=== PATIENT | male | born 1955 | race Caucasian/White ===

== ENCOUNTER 2018-10-17 08:12 | Emergency (ER) | payer OTHER, SELFPAY ==
[2018-10-17] VITALS (7 sets, daily range): BP systolic 119–159; BP diastolic 68–86; PULSE 61–83; RESP 13–24; TEMP 36.4; O2SAT 80–97; BMI 35.2
--- NOTE | 2018-10-17 08:24 | RAD_ITS ---
STUDY: X-RAY - LEFT SHOULDER REASON FOR EXAM: Male, 63 years old. Pain following injury. Limited motion. TECHNIQUE: 2 view(s) of the shoulder. COMPARISON: None. FINDINGS: There is anterior subluxation of the shoulder joint. Normal acromioclavicular joint. Normal acromion. Normal humeral head and visualized proximal humerus. The soft tissue structures are unremarkable. Normal visualized pulmonary apex. RAD/Shoulder min 2 Views IMPRESSION: Anterior subluxation of the shoulder joint. Electronically Signed: Micha Espinoza, at 9:06 EDT , Service support ,
--- NOTE | 2018-10-17 08:27 | ED.DCSUM_ITS ---
- ER Visit Summary Date of Service: 10/17/18 Chief Complaint: Left shoulder injury History of Present Illness: The patient is a 63 M who was at work today when he fell. He landed on his left elbow stating that drove everything up into his shoulder. He notes pain in the left shoulder and limited range of motion. He states he had some tingling in his fingers. He denies prior shoulder injury. He denies any other injuries. Physical Examination: Afebrile vital signs are stable Gen: Well-nourished well-developed patient appears in pain Head: Normocephalic atraumatic Eyes: Perrl EOMI ENT: TMs clear no rhinorrhea moist mucous membranes. Nellie Lynn score of 2 Neck: Supple no lymphadenopathy no JVD nontender CVS: Regular rate rhythm no murmurs normal S1-S2 Respiratory: No distress clear to auscultation bilaterally chest nontender Abdomen: Soft nontender nondistended normal bowel sounds umbilical hernia Back: Nontender Extremity: Left shoulder demonstrates limited range of motion. Deformity noted. Neurovascular intact distal. Skin: Normal color no rash Neuro: alert orientated ?3 CN II-XII intact normal strength sensation Test Results: Left shoulder films were obtained which demonstrated a anterior shoulder dislocation. No obvious fracture. Emergency Department Course and Treatment: IV established the patient received fentanyl and Zofran. Patient and family provided informed consent for the use of propofol for procedural sedation for closed reduction. Last p.o. was 3 hours prior to arrival and was only coffee. Patient was placed on the monitor and given supplemental oxygen. Patient received aliquots of propofol to maintain sedation. Reduction was attempted through traction and standard Milch technique. Patient was placed in sling and swath. Postreduction films were obtained in satisfactory position. He will be referred to on-call orthopedics. Impression: 1. Left anterior shoulder dislocation 2. Procedural sedation by emergency physician 3. Reduction of dislocation This note was generated with Real Time Translation dictation software. It may contain incorrect words, spelling, and punctuation that were not noted in review of the chart prior to signing ED Disposition - Plan for ED Patient: Disposition: Home or Assisted Living Instructions: DISLOCATION: SHOULDER (Reduced) Prescriptions: Hydrocodone Bitart/Apap 5-325 [[place] 5MG-325MG] 1 tab PO Q6H PRN PRN 3 Days #12 tab PRN Reason: Pain Prescription Printed Referrals: Care Physician,No Primary [Primary Care Provider] - Tomás De Paz DO [STAFF PHYSICIAN] - As soon as possible
[2018-10-17] MEDS: Ondansetron 4 MG/2 ML Vial IV (08:43)
[2018-10-17] MEDS: fentaNYL 100 MCG/2 ML Ampul 50 MCG IV (08:43)
[2018-10-17] MEDS: Propofol 200 MG/20 ML Vial IV BOLUS ×2 (09:05→09:15)
--- NOTE | 2018-10-17 09:23 | RAD_ITS ---
STUDY: X-RAY - LEFT SHOULDER REASON FOR EXAM: Male, 63 years old. Post reduction. TECHNIQUE: AP single view(s) of the shoulder. COMPARISON: None. FINDINGS: Satisfactory reduction. There is degenerative arthrosis of the acromioclavicular joint without inferior osseous spur formation. Normal acromion. Normal humeral head and visualized proximal humerus. The soft tissue structures are unremarkable. Normal visualized pulmonary apex. RAD/Shoulder min 2 Views IMPRESSION: Satisfactory reduction. Electronically Signed: Micha Espinoza, at 9:37 EDT , Service support ,
[2018-10-17] MEDS: 0.9% Normal Saline 1,000 ML 150 ML IV (09:30)
== END 2018-10-17 10:42 | disposition home or self-care (01) ==
PROVIDERS: Emergency Provider Emergency Medicine
DX: S43.015A Anterior dislocation of left humerus, initial encounter (principal); W18.30XA Fall on same level, unspecified, initial encounter; Y93.89 Activity, other specified; Y92.89 Other specified places as the place of occurrence of the external cause; Y99.0 Civilian activity done for income or pay
CPT/HCPCS: 23650; 73030; 96374; 96375; 99152; 99284; J7030; A4216; J2405

== ENCOUNTER → 2018-11-05 | Outpatient (CLI) | payer OTHER, SELFPAY ==
[2018-10-22 09:39] VITALS: BMI 35.2
--- NOTE | 2018-11-05 09:57 | RAD_ITS ---
CLINICAL HISTORY: Male, 63 years old. Left shoulder pain following a recent injury. PROCEDURE: ARTHROGRAM - LEFT SHOULDER CONSENT: The procedure as well as the benefits and possible complications including infection and bleeding were explained to the patient. Informed consent was obtained. FLUOROSCOPY TIME (if supplied): (0:33) minutes/seconds Injection Information: 10 cc of dilute Magnevist. Number of images obtained: 4 TECHNIQUE: (All elements of maximal sterile barrier technique followed, including US elements as applicable) The patient was in the supine position. The overlying skin was prepped and draped in the usual sterile fashion. Following local anesthetic application and under direct fluoroscopic guidance, a 22-gauge spinal needle was placed into the shoulder joint. 2 cc of Isovue 300 was injected for confirmation. Following this, 10 cc of dilute Magnevist was injected. The patient tolerated the procedure well. RAD/Arthrogram Shoulder w/ MRI IMPRESSION: Shoulder arthrogram for MRI examination. The patient tolerated the procedure well. Electronically Signed: Micha Espinoza, at 11:08 EDT , Service support ,
--- NOTE | 2018-11-05 11:30 | MRI_ITS ---
STUDY: MR LEFT SHOULDER ARTHROGRAPHY REASON FOR EXAM: Decreased range of motion, fall with dislocation 3 weeks ago. TECHNIQUE: Standardized fat and water weighted pulse sequences were obtained in all 3 orthogonal planes after intra-articular instillation of dilute Magnevist. COMPARISON: Radiographs 10/17/2018. FINDINGS: There is mild supraspinatus tendinosis (T2 coronal images 10, 11) and a small linear intrasubstance partial thickness tear of the distal anterior supraspinatus tendon at the greater tuberosity insertion (T2 coronal image 12) without intravasation of contrast to indicate a tear communicating with the articular surface. Normal infraspinatus tendon. There is a full-thickness tear of the subscapularis tendon, retracted approximately 1.2 cm with medial dislocation of the long biceps tendon (T1 axial images 12-15). Normal teres minor tendon. Normal supraspinatus muscle. Normal infraspinatus muscle. Normal subscapularis muscle. There is atrophy with partial fat replacement of the teres minor muscle (T1 coronal image 1). Normal glenohumeral articulation. There is a Hill-Sachs lesion (T1 axial image 8) with bone edema from recent impaction. Normal biceps labral complex. Normal labrum. Normal capsulo- ligamentous complex. Normal rotator interval. There is acromioclavicular arthrosis with mild hypertrophic changes effacing the subacromial fat (T2 sagittal images 7, 8). There is a Type I morphology (flat undersurface), with a neutral orientation. There is dilute gadolinium in the anterior subacromial-subdeltoid bursa. Normal visualized coracohumeral and coracoacromial ligaments. There is mild iatrogenic edema in the proximal anterior deltoid muscle. Normal trapezius muscle. MRI/Upper Ext Jt Only W/Contrast IMPRESSION: Full-thickness tear of the subscapularis tendon with medial dislocation of the long biceps tendon. Small intrasubstance partial-thickness tear and mild tendinosis of the supraspinatus tendon. Atrophy of the teres minor muscle. Hill-Sachs lesion. Acromioclavicular arthrosis. Electronically Signed: Dwaine Miller MD at 11:59 EDT Tel , Service support ,
== END | disposition home or self-care (01) ==
LOC: RAD 09:56
PROVIDERS: Referring Provider Orthopaedic Surgery; Visit Provider Orthopaedic Surgery
DX: S43.005A Unspecified dislocation of left shoulder joint, initial encounter (principal)
CPT/HCPCS: 23350; 73222; 77002; A9575; Q9967

== ENCOUNTER 2018-12-04 17:30 | Outpatient (RCR) | payer OTHER, SELFPAY ==
[2018-11-12 07:50] VITALS: BMI 35.2
--- NOTE | 2018-11-13 11:09 | HP.PTEVAL_ITS ---
Patient's Visit Information FANG ERAZO Jr. is a 63 year old M referred to Physical Therapy by Tomás De Paz DO with a diagnosis of Left Shoulder Dislocation. Date of Evaluation: 11/13/18 Physical Therapist: Chelsey Epps DPT - Visit Plan Frequency: 2x /Week Duration: 6 Weeks Plan: Focus on ROM and strength for functional mobility. 11/13/18 HEP: HEP: Seated Cane Flexion, Seated Cane Abduction, Standing Cane IR behind the back - Subjective Findings: Left shoulder dislocation 10/17/18- slipped and went down on the shoulder. Right dominate. Happened in [place]- drove home with it popped out of place and then went to [facility]- They put him to sleep and popped it right back in. They placed him a sling and then he follow up with Dr. Sher. Who had him take it out of the sling and continue normal life. He was not cleared to go back to work. Had an MRI last week- and followed up with him yesterday. He has a slight tear in the shoulder- can do surgery or therapy. Therapy and has cleared him back to work- is waiting to hear from [facility]. 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 So he feels he can be back to work. Patient reports that he can't lift it out to the side. Pain is located in the whole shoulder. Worst in the last 48 hours: 5/10 Best: 0/10 Agg: moving it on its own. Eases: ice, and bringing it out of the range that hurts. Describes the pain as just feels it- not sharp its hard to describe. No radiating pain. No N/T in the fingers- no increase in MALHOTRA, neck pain, blurred vision, dizziness. Sleep: midly disturbed- likes to sleep on his belly and that he can't do. PMHx/Meds: none since saw MD- in chart. Very active and just wants to get back to all of his normal stuff. - Objective Posture: Fh, RS- can correct with verbal cues but does not maintain throughout session. Gait: no deviation- good arm swing and trunk rotation. Palpation: not tender to touch. ROM: cervical: wfl, Shoulder AROM: flexion 85 degrees, abduction 65 degrees, IR pocket, ER 50 degrees, AAROM: flexion 165 degrees, abduction 155 degrees, IR: equal to other side. Elbow/Wrist/Hand:WNl. Strength: Scap: fair minus, Shoulder isometric at neutral: extn: 4+/5, IR/ER: 4/5, Flex/abd: 4-/5 with discomfort. Elbow: 5/5, Wrist/Hand: WNL. Sensation: WNL - Goals Goal 1:: Patient will be I with HEP and progression Goal Time Frame: 4-6 Weeks Goal 2:: Patient will demo full AROM of the left shoulder Goal Time Frame: 4-6 Weeks Goal 3:: Patient will demo 4+/5 strength in left shoulder Goal Time Frame: 4-6 Weeks Goal 4:: Patient will report 0/10 pain for 1 week Goal Time Frame: 4-6 Weeks Goal 5:: Patient will maintain proper posture t/o tx session to demo increased scap s/s Goal Time Frame: 4-6 Weeks - Rehabilitation Potential Physical Therapy Diagnosis: Patient presents with hypomobility- he has decreased active range of motion, strength and muscular endurance s/p fall at work leading to increased pain and decreased ability to perform ADL's. Rehabilitation Potential: Fair - Anticipated Interventions Patient/Client Instruction: Educate patient on: Benefits of Fitness Program Therapeutic Exercise to Include: Strength training, Endurance training, Body mechanics, Postural training, Flexibilty training, Passive ROM, Active ROM, Scapular Strength/Stabilization For the Purpose of:: To improve muscle performance and motor function TENS: Yes Cryotherapy (ice pack, ice massage): Yes Thermo therapy (hot pack): Yes Ultrasound (thermal/non thermal): Yes Thank you for the opportunity to evaluate your patient. For Medicare and Medicare HMO plans, please review the plan of care and approve it. It will need to be FAXED BACK to us at [phone] for Medicare purposes. For Medicare only, by signing this I certify the plan of care. Please let me know if there are questions or concerns regarding this plan of care. Physician Signature: Date:
--- NOTE | 2019-01-16 08:04 | HP.PTDCSUM ---
HP - PT D/C Summary It has been my pleasure to treat FANG ERAZO Jr. under orders from Tomás De Paz DO, for the diagnosis of Left Shoulder Dislocation for a total of 6 visit(s). Discharge Date: Please see the following information for a summary of their discharge status. - Subjective Subjective: No problems at rest. Still having difficulty and pain reaching out to side or behind my back. - Pain L SH Pain Intensity (Out of 10): 0 - Objective Objective/Function: Good progression made with rotator cuff and scapular exercises. Challenge and fatigue noted post. Better active motion into abduction this date. - Goals Goal 1:: Patient will be I with HEP and progression Goal 2:: Patient will demo full AROM of the left shoulder Goal 3:: Patient will demo 4+/5 strength in left shoulder Goal 4:: Patient will report 0/10 pain for 1 week Goal 5:: Patient will maintain proper posture t/o tx session to demo increased scap s/s - Plan Plan: Focus on ROM and strength for functional mobility. 11/13/18 HEP: HEP: Seated Cane Flexion, Seated Cane Abduction, Standing Cane IR behind the back - D/C Information If there are questions or concerns regarding this patient's physical therapy, please feel free to call me at [phone]. Thank you for the referral of this patient. Sincerely, Chelsey Epps DPT
== END 2018-12-04 19:00 | disposition home or self-care (01) ==
LOC: PT 17:30
PROVIDERS: Referring Provider Orthopaedic Surgery; Visit Provider Orthopaedic Surgery
DX: S43.005D Unspecified dislocation of left shoulder joint, subsequent encounter (principal)
CPT/HCPCS: 97110; 97161

== ENCOUNTER 2022-01-11 12:52 | Emergency (ER) | payer OTHER, MEDICARE, SELFPAY ==
[2022-01-11 12:52] VITALS: BP 181/100; PULSE 78; RESP 18; TEMP 36.7; O2SAT 96; BMI 38.0
--- NOTE | 2022-01-11 13:38 | RAD_ITS ---
STUDY: X-RAY - RIGHT KNEE REASON FOR EXAM: Male, 66 years old. Injury to right knee TECHNIQUE: 4 view(s) of the knee. COMPARISON: None. FINDINGS: Normal visualized distal femur. Normal visualized proximal tibia and fibula. Normal proximal tibiofibular articulation. Normal medial femorotibial compartment. Normal lateral femorotibial compartment. Normal patellofemoral articulation. Small joint effusion. Prepatellar soft tissue swelling. RAD/Knee 4 or More Views IMPRESSION: Small joint effusion. Prepatellar soft tissue swelling. Electronically Signed: Micha Espinoza MD at 14:04 EDT ,
--- NOTE | 2022-01-11 15:27 | EDS_ITS ---
HPI History of Present Illness Chief Complaint: Lower Extremity Injury Narrative Narrative: Patient who denies significant past medical history presents with pain in his right knee from an injury that he sustained yesterday morning at 6 AM. He was at work and stepping out of a trailer when he stepped down a few feet and felt a pop in his right knee. He did not fall or hit his head. He denies any injury. He had mild pain throughout the day yesterday and continue to work. It is more of an achy pain that he describes distal to his patella. He is able to walk and weight-bear. [facility] Medical History Shoulder dislocation Home Medications NK 10/22/18 [History Last Taken Unknown] Allergy/AdvReac Type Severity Reaction Status Date / Time No Known Allergies Allergy Verified 01/11/22 12:56 Social History Smoking Status: Never smoker ROS ROS ED ROS Narrative Constitutional: No fever, no chills. HEENT: No sore throat. No neck pain. No loss of vision. No rhinorrhea. Cardiovascular: No chest pain. No palpitations. No pedal edema. Respiratory: No cough, no shortness of breath. Abdominal: No abdominal pain. No nausea. No vomiting. Genitourinary: No dysuria. No hematuria. Musculoskeletal: No myalgias. Right knee pain worse with movement. Neurologic: No headaches. No dizziness. No lightheadedness. Skin: No rash. No change in color. Psychiatric: No depression. No anxiety. EXAM Physical Exam Narrative Exam Narrative: Afebrile. Vital signs noted. HEENT: Normocephalic. Atraumatic. PERRL, EOMI. Neck soft and supple. No point tenderness or step off. Cardiovascular: Regular rate and rhythm. No murmurs, rubs, or gallops appreciated. Respiratory: No tachypnea. Lungs clear to auscultation bilaterally. Gastrointestinal: Abdomen soft, nontender, with normoactive bowel sounds. No rebound or guarding. Neurological: Awake. Alert. Nonfocal, nonlateralizing. Skin: No rash. Normal color. No pallor. Musculoskeletal: No pedal edema. Full range of motion extremities. Minimal tenderness to palpation in the prepatellar bursa area just distal to the patella. No erythema. Flexion and extension mechanism of right knee intact. Able to lift leg off bed without difficulty. Palpable dorsalis pedis pulse. Const Vital Signs: 01/11/22 12:52 Temperature 98.1 F Temperature Source Temporal Pulse Rate 78 Respiratory Rate 18 Blood Pressure 181/100 H Blood Pressure Mean 127 Pulse Ox 96 Oxygen Delivery Method Room Air MDM MDM MDM Narrative Medical decision making narrative: X-rays were obtained of the right knee, interpreted by myself which shows a small joint effusion and prepatellar soft tissue swelling but no evidence of fracture. I do feel that he has more of a knee sprain. He will wear an Duane bandage or neoprene sleeve as needed and take [id number] Aleve. [facility]. He states he is able to return to work and I agree. He was given a workability note. I feel he be discharged safely home with follow-up. Return instructions to the emergency department were reviewed. Disposition is discharged home in stable condition. Radiography Diagnostic Testing: Clinical Impression(s) from Imaging Studies Knee X-Ray 01/11/22 13:38 IMPRESSION: Small joint effusion. Prepatellar soft tissue swelling. Electronically Signed: Micha Espinoza MD at 14:04 EDT , Discharge Plan Triage Chief Complaint: Lower Extremity Injury ED Provider: Krish Amor Dx/Rx/DC Orders Clinical Impression: Right knee sprain, Acute pain of right knee Instructions: ED Knee Sprain Prescriptions: No Action NK Primary Care Provider: Care Physician,No Primary Referrals: Care Physician,No Primary [Primary Care Provider] - [facility] [Non-Staff] - As soon as possible Disposition Disposition: Home, Self Care
[2022-01-11 15:39] VITALS: RESP 16
== END 2022-01-11 15:39 | disposition home or self-care (01) ==
PROVIDERS: Emergency Provider Emergency Medicine; Visit Provider Emergency Medicine
DX: S83.91XA Sprain of unspecified site of right knee, initial encounter (principal); M25.461 Effusion, right knee; X50.1XXA Overexertion from prolonged static or awkward postures, initial encounter; Y99.0 Civilian activity done for income or pay
CPT/HCPCS: 73564; 99282